=== PATIENT | male | born 1995 | race Asian ===

== ENCOUNTER 2021-12-02 14:47 | Emergency (ER) | payer SELFPAY ==
[~2021-12-02] VITALS: Ht 170.2 cm; Wt 95.5 kg
[2021-12-02 16:52] VITALS: BP 152/95
[2021-12-02] MEDS ORDERED: IBUP600T27 PO (17:01)
[2021-12-02] MEDS ORDERED: CEPH-509 PO ×2 (17:01→17:24)
[2021-12-02] MEDS ORDERED: CEPH500C PO (17:25)
== END 2021-12-02 17:15 | disposition home or self-care (01) ==
LOC: ER 14:47
DX: S61.011A Laceration without foreign body of right thumb without damage to nail, initial encounter (principal); W26.9XXA Contact with unspecified sharp object(s), initial encounter; Y93.89 Activity, other specified; Y92.89 Other specified places as the place of occurrence of the external cause; Y99.8 Other external cause status
CPT/HCPCS: 12002; 73120